=== PATIENT | female | born 1945 | race Caucasian/White ===

== ENCOUNTER 2020-11-11 12:00 | Outpatient (RCR) | payer MEDICARE, SELFPAY ==
[2020-11-11] MEDS: COVID-19 VACC, MRNA(PFIZER)/PF 30 MCG/0.3 ML SYRINGE IM (09:37)
[2020-12-02] MEDS: COVID-19 VACC, MRNA(PFIZER)/PF 30 MCG/0.3 ML SYRINGE IM (09:07)
== END 2021-02-08 23:59 ==
LOC: IMMUN 12:00
PROVIDERS: Visit Provider Family Medicine
DX: Z23 Encounter for immunization (principal)
CPT/HCPCS: 0001A; 0002A; 91300